=== PATIENT | male | born 1960 | race American Indian/Alaskan Native ===

== ENCOUNTER 2020-05-25 08:21 | Outpatient (CLI) | payer OTHER ==
--- NOTE | 2020-05-25 10:27 | XRay Report ---
THORACIC SPINE 2 VIEWS INDICATION / CLINICAL INFORMATION: BACK PAIN. COMPARISON: None available. FINDINGS: VERTEBRAE: No acute fracture. No significant malalignment. DISC SPACES / FACET JOINTS:No significant abnormality. PARASPINAL SOFT TISSUES:No significant abnormality. ADDITIONAL FINDINGS: Aortic arch atherosclerosis. Signer Name: Kartik Jack MD Signed: 05/25/2020 10:23 AM Workstation Name: [id number]
--- NOTE | 2020-05-25 10:43 | XRay Report ---
LUMBOSACRAL SPINE 3 VIEWS INDICATION / CLINICAL INFORMATION: BACK PAIN. COMPARISON: None available. FINDINGS: VERTEBRAE: No acute fracture. No significant malalignment. DISC SPACES / FACET JOINTS:Disc spaces are satisfactorily maintained. Lower lumbar facet degenerative arthrosis is present. PARASPINAL SOFT TISSUES:No significant abnormality. ADDITIONAL FINDINGS: None. Signer Name: Kartik Jack MD Signed: 05/25/2020 10:38 AM Workstation Name: [id number]
== END 2020-05-25 08:22 | disposition home or self-care (01) ==
LOC: XRAY 08:21
PROVIDERS: ATTEND Internal Medicine
DX: M47.816 Spondylosis without myelopathy or radiculopathy, lumbar region (principal); I70.0 Atherosclerosis of aorta
CPT/HCPCS: 72070; 72100